=== PATIENT | female | born 1950 | race Caucasian/White ===

== ENCOUNTER 2019-04-08 10:14 | Emergency (ER) | payer MEDICARE, MEDICAID ==
[2019-04-08 11:06] VITALS: BP 111/58
--- NOTE | 2019-04-08 11:21 | UC ---
Throat Pain/Nasal Donny HPI - HPI Summary HPI Summary: Patient is here with left ear pain, sinus congestion and chills, cough is present mostly in the morning form PND - History of Current Complaint Chief Complaint: UCRespiratory Stated Complaint: SINUSES,EAR COMPLAINT Time Seen by Provider: 04/08/19 11:19 Hx Obtained From: Patient ?: No Onset/Duration: Gradual Onset, Lasting Days Severity: Severe Pain Intensity: 7 Associated Signs & Symptoms: Positive: Dysphagia, Sinus Discomfort, Nasal Discharge - Allergies/Home Medications Allergies/Adverse Reactions: Allergies Allergy/AdvReac Type Severity Reaction Status Date / Time No Known Allergies Allergy Verified 09/28/13 12:36 Home Medications: Home Medications Amiodarone TAB* [Cordarone TAB*] 200 mg PO DAILY 04/08/19 [History Confirmed 12/20] Carvedilol TAB* [Coreg TAB*] 25 mg PO BID 04/08/19 [History Confirmed 04/08/19] Citalopram TAB* [CeleXA TAB*] 10 mg PO DAILY 04/08/19 [History Confirmed ] Empagliflozin [Jardiance] 10 mg PO QAM 04/08/19 [History Confirmed 04/08/19] Fenofibrate 145 mg PO DAILY 04/08/19 [History Confirmed 04/08/19] Fluticasone NASAL SPRAY 50MCG* [Flonase NASAL SPRAY 50MCG*] 1 spray BOTH NARES DAILY 04/08/19 [History Confirmed 04/08/19] Furosemide TAB* [Lasix TAB*] 80 mg PO DAILY 04/08/19 [History Confirmed 04/08/19 ] Gabapentin 1.5 tab PO BID 04/08/19 [History Confirmed 04/08/19] Hydrocodone/Acetaminophen [Vicodin 5-300 mg] 1 tab PO DAILY PRN 04/08/19 [ History Confirmed 04/08/19] Hydrocodone/Acetaminophen [Vicodin 5-300 mg] 2 tab PO BID 04/08/19 [History Confirmed 04/08/19] Insulin GLARGINE(*) [Lantus(*)] 40 units SUBCUT Q24H 04/08/19 [History Confirmed 04/08/19] Insulin Lispro [Humalog Kwikpen] 0 unit SUBCUT . DIRECTED 04/08/19 [History Confirmed 04/08/19] Levothyroxine TAB* [Synthroid TAB*] 150 mcg PO 0800 04/08/19 [History Confirmed 04/08/19] Lisinopril [Zestril] 5 mg PO QAM 04/08/19 [History Confirmed 04/08/19] Metolazone TAB* [Zaroxolyn TAB*] 5 mg PO DAILY 04/08/19 [History Confirmed 04/08] Nortriptyline HCl 30 mg PO QPM 04/08/19 [History Confirmed 04/08/19] Omeprazole 25 mg PO QID 04/08/19 [History Confirmed 04/08/19] Potassium Chlor TAB* [Klor Con ER TAB*] 2 meq PO TID 04/08/19 [History Confirmed 04/08/19] Rosuvastatin Calcium [Crestor] 10 mg PO QAM 04/08/19 [History Confirmed 04/08/19 ] Spironolactone/HCTZ 25-25 MG* [Aldactazide 25-25*] 1 tab PO DAILY 04/08/19 [ History Confirmed 04/08/19] Venlafaxine HCl 75 mg PO BID 04/08/19 [History Confirmed 04/08/19] Warfarin TAB(*) [Coumadin TAB(*)] 2.5 mg PO SEE INSTRUCTIONS 04/08/19 [History Confirmed 04/08/19] Warfarin TAB(*) [Coumadin TAB(*)] 5 mg PO SEE INSTRUCTIONS 04/08/19 [History Confirmed 04/08/19] amLODIPine TAB* [Norvasc 5 mg TAB*] 5 mg PO DAILY 04/08/19 [History Confirmed ] busPIRone TAB* [Buspar TAB*] 10 mg PO TID 04/08/19 [History Confirmed 04/08/19] hydrALAZINE TAB* [Apresoline TAB*] 25 mg PO QID 04/08/19 [History Confirmed 12/20] PMH/Surg Hx/FS Hx/Imm Hx Previously Healthy: Yes - Surgical History Surgical History: Yes Surgery Procedure, Year, and Place: thyroid, parathyroid, back, pacemaker/defib - Family History Known Family History: Positive: Cardiac Disease, Hypertension - Social History Alcohol Use: Rare Substance Use Type: None Smoking Status (MU): Never Smoked Tobacco Review of Systems All Other Systems Reviewed And Are Negative: Yes Constitutional: Positive: Chills, Fatigue ENT: Positive: Sore Throat, Ear Ache, Nasal Discharge, Sinus Congestion Respiratory: Positive: Cough Cardiovascular: Positive: Negative Gastrointestinal: Positive: Negative Genitourinary: Positive: Negative Motor: Positive: Negative Neurovascular: Positive: Negative Musculoskeletal: Positive: Negative Neurological: Positive: Headache Psychological: Positive: Negative Is Patient Immunocompromised?: Yes - diabetes Physical Exam Vital Signs: Initial Vital Signs Temp 97.8 F 04/08/19 11:00 Pulse 80 04/08/19 11:00 Resp 18 04/08/19 11:00 BP 111/58 04/08/19 11:00 Pulse Ox 95 04/08/19 11:00 Throat Pain/Nasal Course/Dx - Course Course Of Treatment: hx obtained, exam performed ,meds reviewed, - Differential Dx/Diagnosis Differential Diagnosis/HQI/PQRI: Otitis Media, Pharyngitis, Sinusitis, URI Provider Diagnosis: Left otitis media Discharge ED - Sign-Out/Discharge Documenting (check all that apply): Patient Departure All imaging exams completed and their final reports reviewed: No Studies - Discharge Plan Condition: Stable Disposition: HOME Prescriptions: Amoxicillin PO (*) [Amoxicillin 875 MG (*)] 875 mg PO BID #20 tab Patient Education Materials: Ear Infection (ED) Referrals: Chalino Carmona MD [Primary Care Provider] - Additional Instructions: 1. take the medication as prescribed.2 2. FOllow up with Dr Carmona to monitor PT/INR 3. follow up if not improving. - Billing Disposition and Condition Condition: STABLE Disposition: Home - Attestation Statements Provider Attestation: I was available for consult. This patient was seen by the RENA. The patient was not presented to , seen by or examined by ca -Jeremiah Briones MD Addendum entered and electronically signed by Kathy Griffin NP 04/20/19 14: 22: UC Addendum Addendum: Physical Exam: LEFT TM, dull and purulent fluid noted behind, external canal red , RIght tm normal, posterior pharnxy red, some PND noted, lymphadenopathy behind left ear and left cervical. all oterh systems within normal limits
== END 2019-04-08 11:32 | disposition home or self-care (01) ==
LOC: UCCORT 10:14
DX: H66.92 Otitis media, unspecified, left ear (principal); E11.9 Type 2 diabetes mellitus without complications; Z79.4 Long term (current) use of insulin; Z95.0 Presence of cardiac pacemaker
CPT/HCPCS: 99212; G0463

== ENCOUNTER 2021-03-05 10:16 | Observation (INO) ==
[2021-03-05] MEDS ORDERED: Lactated Ringers 1000 ml BAG 1,000 ML IV ONE (11:03)
[2021-03-05 12:23] LABS: ABS Lymphocytes 1.3 10^3/ul (1.0-4.8); ABS Monocytes 0.9 10^3/ul (0-0.8); ABS Neutrophils 8.1 10^3/ul (1.5-7.7); Eosinophil % 0.1 %; Hematocrit 44 % (35-47); Hemoglobin 15.1 g/dL (12.0-16.0); Lymphocyte % 12.3 %; Mean Corpuscular HGB Conc 34 g/dL (31-36); Mean Corpuscular Hemoglobin 32 pg (27-31); Mean Corpuscular Volume 92 fL (80-97); Nucleated Red Blood Cells % 0.1; Platelet Count 214 10^3/uL (150-450); Red Blood Count 4.79 10^6 /uL (3.70-4.87); Red Cell Distribution Width 15 % (10-15); White Blood Count 10.3 10^3/uL (3.5-10.8)
[2021-03-05 12:26] LABS: Urine Appearance Clear; Urine Bilirubin Negative (Negative); Urine Blood Negative (Negative); Urine Color Straw; Urine Glucose Negative (Negative); Urine Ketones Negative (Negative); Urine Nitrite Negative (Negative); Urine Protein Negative (Negative); Urine Specific Gravity 1.006 (1.002-1.030); Urine Urobilinogen Negative (Negative)
[2021-03-05 12:37] LABS: Albumin 5.1 g/dL (3.2-5.2); Albumin/Globulin Ratio 1.5 (1-3); Calcium 10.8 mg/dL (8.6-10.3); EGFR African American 20.8 (>60); EGFR Non-African American 17.2 (>60); Globulin 3.4 g/dL (2-4); Total Bilirubin 0.8 mg/dL (0.2-1.0); Total Protein 8.5 g/dL (6.4-8.9)
[2021-03-05 15:17] LABS: INR 6.04 (0.86-1.15)
[2021-03-05] MEDS: Insulin GLARGINE 100 un/ml 10 ml VIAL SUBCUT SCH (18:33)
[2021-03-05] MEDS ORDERED: Warfarin per PHARMACY **NOTE FOLLOW UP SCH (19:00)
[2021-03-06 07:07] LABS: ABS Basophils 0.1 10^3/ul (0-0.2); ABS Eosinophils 0.1 10^3/ul (0-0.6); ABS Lymphocytes 2.3 10^3/ul (1.0-4.8); ABS Monocytes 1.1 10^3/ul (0-0.8); ABS Neutrophils 5.4 10^3/ul (1.5-7.7); Eosinophil % 0.7 %; Hematocrit 40 % (35-47); Hemoglobin 13.8 g/dL (12.0-16.0); Lymphocyte % 25.7 %; Mean Corpuscular HGB Conc 35 g/dL (31-36); Mean Corpuscular Hemoglobin 32 pg (27-31); Mean Corpuscular Volume 92 fL (80-97); Mean Platelet Volume 9.1 fL (7.4-10.4); Platelet Count 188 10^3/uL (150-450); Red Blood Count 4.34 10^6 /uL (3.70-4.87); Red Cell Distribution Width 15 % (10-15); White Blood Count 8.9 10^3/uL (3.5-10.8)
[2021-03-06 07:21] LABS: Calcium 9.6 mg/dL (8.6-10.3); EGFR African American 21.1 (>60); EGFR Non-African American 17.4 (>60); Potassium 3.3 mmol/L (3.5-5.0)
[2021-03-06 07:39] LABS: INR 6.89 (0.86-1.15)
[2021-03-06 07:40] LABS: TSH Ultra Thyroid Stim Horm 0.47 mcIU/mL (0.34-5.60)
[2021-03-06 08:23] LABS: Albumin 4.5 g/dL (3.2-5.2); Albumin/Globulin Ratio 1.6 (1-3); Direct Bilirubin 0.2 mg/dL (0.03-0.18); Globulin 2.8 g/dL (2-4); Indirect Bilirubin 0.4 mg/dL (0.3-1.0); Total Bilirubin 0.6 mg/dL (0.2-1.0); Total Protein 7.3 g/dL (6.4-8.9)
[2021-03-06 08:34] LABS: T4, Total 14.63 mcg/dL (6.09-12.23)
[2021-03-06] MEDS: Cholecalciferol (VIT D3) 1,000 unit TAB PO SCH (08:47)
[2021-03-06] MEDS ORDERED: Phytonadione Oral Solution 5 MG/25 ML UDC PO ONE (10:28)
[2021-03-06] MEDS ORDERED: Potassium Chlor 20 meq TAB.ER PO ONE (10:30)
[2021-03-06] MEDS ORDERED: Warfarin - No Order Today **NOTE FOLLOW UP ONE (17:00)
[2021-03-06] MEDS ORDERED: Warfarin DAILY REMINDER **NOTE FOLLOW UP SCH (17:00)
[2021-03-06] MEDS: Insulin GLARGINE 100 un/ml 10 ml VIAL SUBCUT SCH (17:26)
[2021-03-07 04:51] LABS: ABS Basophils 0.1 10^3/ul (0-0.2); ABS Eosinophils 0.1 10^3/ul (0-0.6); ABS Lymphocytes 2.3 10^3/ul (1.0-4.8); ABS Monocytes 1.5 10^3/ul (0-0.8); ABS Neutrophils 6.7 10^3/ul (1.5-7.7); Eosinophil % 0.8 %; Hematocrit 39 % (35-47); Hemoglobin 13.7 g/dL (12.0-16.0); Lymphocyte % 21.2 %; Mean Corpuscular HGB Conc 35 g/dL (31-36); Mean Corpuscular Hemoglobin 32 pg (27-31); Mean Corpuscular Volume 91 fL (80-97); Mean Platelet Volume 8.8 fL (7.4-10.4); Platelet Count 179 10^3/uL (150-450); Red Blood Count 4.28 10^6 /uL (3.70-4.87); Red Cell Distribution Width 15 % (10-15); White Blood Count 10.6 10^3/uL (3.5-10.8)
[2021-03-07 04:56] LABS: INR 2.26 (0.86-1.15)
[2021-03-07 04:58] LABS: Albumin 4.4 g/dL (3.2-5.2); Calcium 9.7 mg/dL (8.6-10.3); Magnesium 2.2 mg/dL (1.9-2.7); Total Bilirubin 0.7 mg/dL (0.2-1.0)
[2021-03-07 05:04] LABS: Albumin/Globulin Ratio 1.5 (1-3); EGFR African American 23.8 (>60); EGFR Non-African American 19.7 (>60); Globulin 2.9 g/dL (2-4); Total Protein 7.3 g/dL (6.4-8.9)
[2021-03-07] MEDS ORDERED: Potassium Chlor 20 meq TAB.ER PO ONE (07:52)
[2021-03-07] MEDS: Cholecalciferol (VIT D3) 1,000 unit TAB PO SCH (08:40)
[2021-03-07 16:49] VITALS: BP 147/62
[2021-03-07] MEDS: Insulin GLARGINE 100 un/ml 10 ml VIAL SUBCUT SCH (17:11)
== END 2021-03-07 18:25 | disposition home or self-care (01) ==
LOC: ED 10:16 → MED 10:16
PROVIDERS: ADMIT Hospitalist; ATTEND Hospitalist